=== PATIENT | female | born 1975 | race Hispanic/Latino ===

== ENCOUNTER 2020-07-25 08:40 | Outpatient (CLI) | payer OTHER ==
--- NOTE | 2020-07-25 11:19 | ULT ---
TRANSABDOMINAL AND TRANSVAGINAL PELVIC ULTRASOUND WITH DOPPLER: DATE: 07/25/2020. PROVIDED CLINICAL HISTORY: Irregular periods, history of thickened endometrium. FINDINGS: The uterus measures about 8.7 x 5.7 x 8.1 cm and demonstrates persistent thickening of the endometriu m in the region of the fundus measuring up to 1.9 cm, nonspecific. There is a heterogeneous appearan ce to the uterine myometrium with a focal area of altered echogenicity measuring about 2.6 cm compati ble with fibroid. The right and left ovaries appear within normal limits in terms of size. There is a complex right ov reyna cyst measuring approximately 2.4 cm. Color Doppler and spectral analysis of the ovarian waveforms demonstrates normal flow bilaterally. There is no evidence for significant free pelvic fluid. IMPRESSION: 1. Persistent nonspecific endometrial thickening. Consider sonohysterography or pelvic MRI as indic ated. 2. Probably physiologic complex right ovarian cyst. Correlation with followup pelvic ultrasound in 12 weeks versus MRI pelvis recommended. 3. Uterine fibroid. POS: [facility]
== END 2020-07-25 08:41 | disposition home or self-care (01) ==
LOC: SCSULT 08:40
PROVIDERS: ATTEND Family Medicine
DX: R93.89 Abnormal findings on diagnostic imaging of other specified body structures (principal); D25.9 Leiomyoma of uterus, unspecified
CPT/HCPCS: 76856